=== PATIENT | male | born 1985 | race African-American/Black ===

== ENCOUNTER 2021-01-29 14:01 | Emergency (ER) | payer OTHER ==
[~2021-01-29] VITALS: Ht 180.3 cm; Wt 74.8 kg
[2021-01-29 14:11] VITALS: BP 142/77
== END 2021-01-29 14:49 | disposition home or self-care (01) ==
LOC: ER 14:01
PROVIDERS: Nurse Practitioner
DX: U07.1 COVID-19 (principal)

== ENCOUNTER 2021-05-12 09:09 | Emergency (ER) | payer OTHER ==
[~2021-05-12] VITALS: Ht 182.9 cm; Wt 72.6 kg
[2021-05-12 09:19] VITALS: BP 146/82
== END 2021-05-12 10:00 | disposition home or self-care (01) ==
LOC: ER 09:09
PROVIDERS: Emergency Medicine
DX: U07.1 COVID-19 (principal); J06.9 Acute upper respiratory infection, unspecified

== ENCOUNTER 2021-05-18 11:30 | Emergency (ER) | payer OTHER ==
[~2021-05-18] VITALS: Ht 182.9 cm; Wt 72.6 kg
[2021-05-18 11:30] VITALS: BP 121/76
== END 2021-05-18 12:08 | disposition left against medical advice (07) ==
LOC: ER 11:30
DX: J00 Acute nasopharyngitis [common cold] (principal); R53.83 Other fatigue; R06.02 Shortness of breath; R05.9 Cough, unspecified; M79.10 Myalgia, unspecified site; Z53.21 Procedure and treatment not carried out due to patient leaving prior to being seen by health care provider